=== PATIENT | female | born 1990 | race Caucasian/White ===

== ENCOUNTER 2020-03-08 15:53 | Emergency (ER) | payer MEDICAID ==
[~2020-03-08] VITALS: Ht 160 cm; Wt 70.4 kg
--- NOTE | 2020-03-08 16:08 | NUR ---
SECOND CALL FOR TRIAGE, REG REPORTS THAT SHE WALKED TO HER CAR
[2020-03-08 16:15] VITALS: BP 119/88
--- NOTE | 2020-03-08 16:32 | NUR ---
C/O RIGHT HIP ABSCESS FOR "FEW DAYS". PT REPORTS IV DRUG USE.
[2020-03-08] MEDS ORDERED: LIDOCAINE-MPF 1%, 5ML ONE ×2 (16:48→17:03)
[2020-03-08] MEDS ORDERED: LIDOCAINE 1%, 10ML INFIL ONE (17:00)
== END 2020-03-08 17:29 | disposition home or self-care (01) ==
LOC: ED 16:44
DX: L03.115 Cellulitis of right lower limb (principal); L02.415 Cutaneous abscess of right lower limb; R00.0 Tachycardia, unspecified; F17.200 Nicotine dependence, unspecified, uncomplicated
CPT/HCPCS: 10060; 99283